=== PATIENT | female | born 1985 | race African-American/Black ===

== ENCOUNTER 2017-02-23 19:51 | Emergency (ER) | payer MEDICAID ==
[~2017-02-23] VITALS: Ht 162.6 cm; Wt 83.0 kg
[~2017-02-23 19:51] MED LIST: METO25TA6 PO
[2017-02-23] MEDS ORDERED: SODIUM CHLORIDE 0.9% 1,000 ML IV ONE (22:45)
[2017-02-23] MEDS ORDERED: ACETAMINOPHEN 500MG TABLET PO ONE (22:45)
[2017-02-23] MEDS ORDERED: ONDANSETRON HCL 4MG/2ML VIAL IV STA (22:45)
[2017-02-23 23:23] LABS: CHLORIDE 102 mEq/L (98-107)
[2017-02-23 23:26] LABS: BASOPHILS % 0.3 % (0.0-2.0); EOSINOPHILS % 3.3 % (0.0-5.0); HEMATOCRIT. 39.3 % (36.0-48.0); HEMOGLOBIN. 13.9 g/dL (12.0-16.0); LYMPHOCYTES % 24.4 % (20.0-50.0); MEAN CORPUSCULAR VOLUME 73.7 fL (81.0-99.0); MEAN PLATELET VOLUME 8.6 fl (7.4-10.4); MONOCYTES % 11.8 % (2.0-8.0); NEUTROPHILS % 60.2 % (40.0-76.0); PLATELET 254 x1000/uL (130-400); RED BLOOD CELL COUNT 5.33 mill/uL (4.2-5.4); RED CELL DISTRIBUTION WIDTH 14.9 % (11.6-14.6)
[2017-02-23 23:36] LABS: CLARITY URINE CLEAR (CLEAR); COLOR URINE DARK YELLOW (YELLOW); GLUCOSE URINE NEGATIVE (NEGATIVE); KETONES URINE NEGATIVE (NEGATIVE); LEUKOCYTE ESTERASE URINE NEGATIVE (NEGATIVE); NITRITE URINE NEGATIVE (NEGATIVE); OCCULT BLOOD URINE NEGATIVE (NEGATIVE); PH URINE 5.5 (4.5-8.0); PROTEIN URINE NEGATIVE (NEGATIVE); SPECIFIC GRAVITY URINE 1.029 (1.005-1.030)
[2017-02-23 23:40] LABS: CARBON DIOXIDE 23 mEq/L (21-32)
[2017-02-23 23:49] LABS: B-HCG QUANTITATIVE 79692 mIU/mL (<3)
[2017-02-24 02:04] VITALS: BP 118/85
== END 2017-02-24 02:07 | disposition home or self-care (01) ==
LOC: ER 22:08
DX: O99.331 Smoking (tobacco) complicating pregnancy, first trimester (principal); O20.0 Threatened abortion; K52.9 Noninfective gastroenteritis and colitis, unspecified; O30.001 Twin pregnancy, unspecified number of placenta and unspecified number of amniotic sacs, first trimester; Z3A.08 8 weeks gestation of pregnancy
CPT/HCPCS: 36415; 76810; 80053; 81003; 81025; 83690; 84702; 85025; 86850; 86900; 86901; 96361; 96374; 99285; J2405; J7030; Z7610

== ENCOUNTER 2017-07-13 07:19 | Inpatient (IN) | payer SELFPAY ==
[~2017-07-13] VITALS: Ht 162.6 cm; Wt 90.7 kg
[2017-07-13] MEDS ORDERED: LACTATED RINGERS 1,000 ML IV SCH (07:40)
[2017-07-13] MEDS ORDERED: METHYLERGONOVINE MALEATE 0.2 MG/ML IM PRN (07:45)
[2017-07-13] MEDS ORDERED: CARBOPROST TROMETHAMINE 250 MCG/ML AMPUL IM PRN (07:45)
[2017-07-13] MEDS: DEXT 5%/LR + PITOCIN 20UNITS/L 1,000 ML IV SCH ×2 (07:53→09:07)
[2017-07-13] MEDS: IBUPROFEN 800MG TABLET PO PRN ×3 (07:59→23:33)
[2017-07-13 08:48] LABS: BASOPHILS % 0.1 % (0.0-2.0); EOSINOPHILS % 0.3 % (0.0-5.0); HEMATOCRIT. 31.9 % (36.0-48.0); HEMOGLOBIN. 11.3 g/dL (12.0-16.0); LYMPHOCYTES % 17.6 % (20.0-50.0); MEAN CORPUSCULAR HEMOGLOBIN 26.4 pg (28.0-32.0); MEAN CORPUSCULAR VOLUME 74.8 fL (81.0-99.0); MEAN PLATELET VOLUME 8.1 fl (7.4-10.4); MONOCYTES % 6.6 % (2.0-8.0); NEUTROPHILS % 75.4 % (40.0-76.0); PLATELET 238 x1000/uL (130-400); RED BLOOD CELL COUNT 4.27 mill/uL (4.2-5.4); RED CELL DISTRIBUTION WIDTH 13.8 % (11.6-14.6)
[2017-07-13 08:56] LABS: INR 0.9; PARTIAL THROMBOPLASTIN TIME 26.4 sec (23.4-31.0); PROTHROMBIN TIME 9.9 sec (9.4-11.6)
[2017-07-13 09:01] LABS: CARBON DIOXIDE 23 mEq/L (21-32); CHLORIDE 106 mEq/L (98-107)
[2017-07-13 09:30] LABS: HEPATITIS B SURFACE ANTIGEN NEGATIVE; RUBELLA IGG 9.1 IU/mL (4.99-10)
[2017-07-13 10:02] LABS: CLARITY URINE CLEAR (CLEAR); COLOR URINE DARK YELLOW (YELLOW); GLUCOSE URINE NEGATIVE (NEGATIVE); KETONES URINE NEGATIVE (NEGATIVE); LEUKOCYTE ESTERASE URINE NEGATIVE (NEGATIVE); NITRITE URINE NEGATIVE (NEGATIVE); OCCULT BLOOD URINE 3+ (NEGATIVE); PH URINE 6.5 (4.5-8.0); PROTEIN URINE 1+ (NEGATIVE); SPECIFIC GRAVITY URINE 1.021 (1.005-1.030)
[2017-07-13 10:30] VITALS: BP 112/78
[2017-07-13 10:35] LABS: *AMPHETAMINES SCREEN URINE NEGATIVE (NEGATIVE); *BARBITURATES SCREEN URINE NEGATIVE (NEGATIVE); *BENZODIAZEPINES SCREEN URINE NEGATIVE (NEGATIVE); *COCAINE SCREEN URINE NEGATIVE (NEGATIVE); CANNABINOID URINE SCREEN NEGATIVE (NEGATIVE); METHADONE URINE SCREEN NEGATIVE (NEGATIVE); OPIATES URINE SCREEN NEGATIVE (NEGATIVE); PHENCYCLIDINE URINE SCREEN NEGATIVE (NEGATIVE)
[2017-07-13 11:50] VITALS: BP 117/82
[2017-07-13 20:00] VITALS: BP 134/46
[2017-07-14 06:00] VITALS: BP 115/55
[2017-07-14 08:00] VITALS: BP 93/63
[2017-07-14] MEDS: IBUPROFEN 800MG TABLET PO PRN ×2 (11:26→23:21)
[2017-07-14 20:00] VITALS: BP 141/72
[2017-07-14 23:21] VITALS: BP 141/72
[2017-07-15] MEDS ORDERED: TETANUS, DIPHTHERIA, PERTUSSIS VAC/PF 0.5ML (>7YR OLD) IM ONE (12:00)
[2017-07-15] MEDS ORDERED: INFLUENZA VIRUS VACCINE 0.5ML SYR IM ONE (12:00)
== END 2017-07-15 11:15 | disposition home or self-care (01) | DRG 561 ==
LOC: OBSVTOIN 07:19 → L&D 07:19 → 8EST 10:03 → 7EST PP/OB 11:54
PROVIDERS: ADMIT Obstetrics & Gynecology; ATTEND Obstetrics & Gynecology
DX: Z39.0 Encounter for care and examination of mother immediately after delivery (principal)
CPT/HCPCS: 36415; 80053; 80305; 81001; 85025; 85610; 85730; 86592; 86703; 86762; 86850; 86900; 87340; 88307; 90686; 90715; J2590

== ENCOUNTER 2018-01-01 10:33 | Emergency (ER) | payer MEDICAID ==
[~2018-01-01] VITALS: Ht 170.2 cm; Wt 130.0 kg
[2018-01-01] MEDS ORDERED: IBUPROFEN 800MG TABLET PO ONE (12:00)
[2018-01-01 14:08] VITALS: BP 154/44
== END 2018-01-01 14:09 | disposition home or self-care (01) ==
LOC: ER 10:39
DX: S93.491A Sprain of other ligament of right ankle, initial encounter (principal); Z90.49 Acquired absence of other specified parts of digestive tract; W01.0XXA Fall on same level from slipping, tripping and stumbling without subsequent striking against object, initial encounter; Y93.89 Activity, other specified; Y92.018 Other place in single-family (private) house as the place of occurrence of the external cause
CPT/HCPCS: 73610; 81025; 99284